=== PATIENT | female | born 1945 | race Caucasian/White ===

== ENCOUNTER → 2021-01-06 10:18 | Outpatient (CLI) | payer MEDICARE, OTHER, SELFPAY ==
--- NOTE | ~2021-01-06 | CT_ITS ---
EXAMINATION:CT diagnostic chest wo con DATE: 01/06/2021 10:52 INDICATION: Interstitial lung disease. TECHNIQUE: Computed tomography (CT) of the chest was performed without intravenous contrast. Automate d exposure control and iterative reconstruction technique were employed. The dose-length product (DLP ) was 177.94 mGy-cm. COMPARISON: None. FINDINGS: There is mild scarring at the lung apices. There is moderate emphysema. There is widespread septal thickening in the lungs with a peripheral and lower lung predominance associated with groundg lass opacities. There is mild bronchiectasis in the inferior lungs. There is a peripheral honeycombin g in the lungs bilaterally. No pleural effusion. The heart size is normal. There are coronary artery calcifications. No pericardial effusion. There is a small sliding hiatal hernia. Calcifications in th e spleen are consistent with old granulomatous disease. There is moderate thoracic spondylosis. IMPRESSION: 1. Diffuse lung disease, likely a combination of emphysema and chronic interstitial lung disease in a pattern of usual interstitial pneumonia (UIP). Reviewed, dictated and finalized at location A. IMPRESSION: 1. Diffuse lung disease, likely a combination of emphysema and chronic intersti tial lung disease in a pattern of usual interstitial pneumonia (UIP).
== END ==
PROVIDERS: PCP Nurse Practitioner Adult Health; Visit Provider Nurse Practitioner Adult Health
DX: J84.9 Interstitial pulmonary disease, unspecified (principal)
CPT/HCPCS: 71250

== ENCOUNTER 2022-03-02 13:26 | Emergency (ER) | payer MEDICARE, OTHER, SELFPAY ==
--- NOTE | ~2022-03-02 | XR_ITS ---
XR wrist RT min 3V 03/02/2022 13:49 Indication: Right radial wrist/thumb pain Procedure: 4 views right wrist Comparison: No prior studies for comparison. 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 No acute fracture or traumatic malalignment. There is mild soft tissue swelling adjacent to th e ulna distally. No foreign bodies. Impression: 1: No acute fracture. Reviewed, dictated and finalized at location A. [employer] Impression: 1: No acute fracture.
[2022-03-02 13:39] VITALS: BP 157/62; PULSE 63; RESP 18; TEMP 36.4; O2SAT 98
--- NOTE | 2022-03-02 14:07 | ED.GENADULT ---
HPI - General Adult General Chief complaint: Extremity Injury, Upper Stated complaint: RIGHT HAND PAIN FALL Time Seen by Provider: 03/02/22 14:08 Source: patient, RN notes reviewed and old records reviewed Mode of arrival: ambulatory Limitations: no limitations History of Present Illness HPI narrative: 76-year-old female presents to the [facility] with dorsal aspect right hand pain since tripping and falling with a FOOSH injury last night. States that she was carrying her dog when she tripped, dropped her dog and fell onto her hand. Has full range of motion. Sensation intact in all 5 fingers with capillary refill under 2 seconds. No snuffbox tenderness and capillary refill under 2 seconds Related Data Home Medications Medication Instructions Recorded Confirmed alprazolam 0.5 mg tablet mg 03/02/22 amlodipine 5 mg tablet mg 03/02/22 atorvastatin 20 mg tablet mg 03/02/22 cetirizine 10 mg tablet mg 03/02/22 clopidogrel 75 mg tablet mg 03/02/22 ergocalciferol (vitamin D2) 1,250 03/02/22 mcg (50,000 unit) capsule ezetimibe 10 mg tablet mg 03/02/22 glimepiride 2 mg tablet mg 03/02/22 lisinopril 20 mg tablet mg 03/02/22 loratadine 10 mg tablet mg 03/02/22 metoprolol tartrate 25 mg tablet mg 03/02/22 Allergies Allergy/AdvReac Type Severity Reaction Status Date / Time No Known Allergies Allergy Verified 03/02/22 13:55 Review of Systems Review of Systems: All systems reviewed & are unremarkable except as noted in HPI and below Constitutional: Constitutional: Reports no additional constitutional complaints Eyes: Eyes: Reports no additional eye complaints ENT: Reports system reviewed and no additional complaints, except as documented Cardiovascular: Cardiovascular: Reports no additional cardiovascular complaints, Denies chest pain and Denies dyspnea Respiratory: Respiratory: Reports no additional respiratory complaints, Denies chest congestion, Denies cough and Denies dyspnea Gastrointestinal: Gastrointestinal: Reports no additional gastrointestinal complaints, Denies abdominal pain, Denies nausea and Denies vomiting Musculoskeletal: Musculoskeletal: Reports as per HPI Integumentary/Breasts: Skin/Breast: Reports system reviewed and no additional complaints, except as docu Neurologic: Reports system reviewed and no additional complaints, except as documented Psychiatric: Psychiatric: Reports no additional psychiatric complaints Allergic/Immunologic: Allergic/Immunologic: Reports no additional allergic/immunologic complaints [facility] Past Medical History Medical History (Updated 03/02/22 @ 19:06 by Daya Javier APRN) Anxiety Cataract Diabetes High cholesterol Seasonal allergies Vitamin D deficiency Surgical History Surgical History (Updated 03/02/22 @ 19:06 by Daya Javier APRN) H/O heart artery stent 2012 H/O: hysterectomy History of colon resection Due to severe diverticulitis Social History Social History (Updated 03/02/22 @ 19:06 by Daya Javier APRN) Gender identity (if verbalized by the patient): Female Comments At the time of my signature, I reviewed and agree with the nursing past medical, surgical, social, and family history. There is no relevant family history pertinent to the patient complaint. Exam Const: General: cooperative, healthy appearing, comfortable, no acute distress, well developed, alert, average body habitus and well nourished Nutritional Appearance: average body habitus and well nourished Orientation/consciousness: patient oriented x3 Limitations: no limitations HENMT: Head: normal to inspection Ears: hearing grossly normal bilaterally and external ears normal Face/Nose/Sinus: Normal external nose present, Normal nares present, Normal nasal mucous membranes and turbinates present and normal facial exam Face and sinus: normal facial exam Mouth: Yes Normal oral and palatal mucosa present, Yes lip normal and Yes moist mucous membranes Eyes:
== END 2022-03-02 14:21 | disposition home or self-care (01) ==
PROVIDERS: Emergency Provider Nurse Practitioner
DX: S60.211A Contusion of right wrist, initial encounter (principal); W01.0XXA Fall on same level from slipping, tripping and stumbling without subsequent striking against object, initial encounter; M18.11 Unilateral primary osteoarthritis of first carpometacarpal joint, right hand; M19.031 Primary osteoarthritis, right wrist; E11.9 Type 2 diabetes mellitus without complications; E78.00 Pure hypercholesterolemia, unspecified; H26.9 Unspecified cataract; I25.10 Atherosclerotic heart disease of native coronary artery without angina pectoris; Z95.5 Presence of coronary angioplasty implant and graft
CPT/HCPCS: 73110; 99213; G0463

== ENCOUNTER 2023-05-31 10:42 | Outpatient (CLI) | payer MEDICARE, OTHER, SELFPAY ==
--- NOTE | ~2023-05-31 | US_ITS ---
EXAMINATION: US soft tissue LE DATE: 05/31/2023 11:12 INDICATION: Left lateral thigh lump. TECHNIQUE: Multiple grayscale and Doppler ultrasound images of the left lower limb were obtained. COMPARISON: None FINDINGS: There is an 11 mm hyperechoic subcutaneous mass in left lateral thigh in the patient's area of concern. There is internal vascularity on power Doppler. IMPRESSION: 1. 11 mm hyperechoic subcutaneous mass with internal vascularity in left lateral thigh, probably judson gn. Ultrasound-guided core biopsy is recommended. Reviewed, dictated and finalized at location E. 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 11 mm hyperechoic subcutaneous mass with internal vascularity in left latera l thigh, probably benign. Ultrasound-guided core biopsy is recommended.
== END 2023-05-31 10:43 ==
LOC: MICIMG 10:44
PROVIDERS: PCP Family Medicine; Visit Provider Family Medicine
DX: R22.42 Localized swelling, mass and lump, left lower limb (principal)
CPT/HCPCS: 76882

== ENCOUNTER 2023-06-28 09:46 | Outpatient (CLI) | payer MEDICARE, OTHER, SELFPAY ==
--- NOTE | ~2023-06-28 | US_ITS ---
EXAMINATION: US biopsy st muscle DATE: 06/28/2023 11:44 INDICATION: Left thigh mass. TECHNIQUE: The procedure including the risks, benefits, and alternatives was discussed with the patie nt. Risks discussed included bleeding and infection. The patient understood the risks and agreed to p roceed. The skin overlying the left thigh was prepped and draped in usual sterile fashion. Anestheti c was administered with 1% lidocaine subcutaneously. An 18 gauge core biopsy needle was then used to obtain 4 core biopsy specimens under continuous sonographic guidance. The entry site was cleaned and dressed. There were no immediate complications. FINDINGS: Ultrasound images demonstrate the needle in a 1.2 cm subcutaneous mass in left thigh. IMPRESSION: 1. Ultrasound-guided core needle biopsy of a 1.2 cm subcutaneous mass in left thigh. Reviewed, dictated and finalized at location A. IMPRESSION: 1. Ultrasound-guided core needle biopsy of a 1.2 cm subcutaneous mass in left t high.
== END 2023-06-28 09:47 | disposition home or self-care (01) ==
PROVIDERS: PCP Nurse Practitioner Family; Visit Provider Nurse Practitioner Family
DX: R22.9 Localized swelling, mass and lump, unspecified (principal)
CPT/HCPCS: 20206; 76942; 88305

== ENCOUNTER 2023-12-08 09:33 | Outpatient (CLI) | payer MEDICARE, OTHER, SELFPAY ==
--- NOTE | ~2023-12-08 | XR_ITS ---
EXAMINATION: XR chest 2V DATE: 12/08/2023 09:48 INDICATION: Pneumonia TECHNIQUE: frontal view of the chest was obtained. COMPARISON: Chest CT dated 01/06/2021 FINDINGS: Peripheral predominant chronic coarse reticular opacities in both lungs corresponding to a combinatio n of emphysema and chronic initial film disease on prior CT. No new airspace consolidation, pleural e ffusion or pneumothorax. Borderline cardiac silhouette exaggerated by left paracardial fat pad. IMPRESSION: 1. Emphysema with chronic interstitial lung disease. Reviewed, dictated and finalized at location A.
== END 2023-12-08 09:34 | disposition home or self-care (01) ==
PROVIDERS: PCP Nurse Practitioner Family; Visit Provider Nurse Practitioner Family
DX: J18.9 Pneumonia, unspecified organism (principal); J43.9 Emphysema, unspecified; J98.4 Other disorders of lung
CPT/HCPCS: 71046

== ENCOUNTER 2024-08-24 11:20 | Emergency (ER) | payer MEDICARE, OTHER, SELFPAY ==
--- NOTE | 2024-08-24 11:23 | ED_ITS ---
HPI - Back Pain/Injury General Chief Complaint: Back Pain/Injury Stated Complaint: back pain Source: patient, RN notes reviewed and old records reviewed Mode of arrival: ambulatory Limitations: no limitations History of Present Illness HPI Narrative: 79-year-old female presents to the [facility] with left lower back pain. Patient states that on Sunday, 4 days ago she was cleaning her car, Sunday night developed low back discomfort. Denies any loss retention of bowel or bladder. No midline tenderness. Walks with a normal gait. Patient denies any urinary symptoms. No chest pain or shortness of breath. Denies abdominal pain Has taken Tylenol Related Data Home Medications ?Medication ?Instructions ?Recorded ?Confirmed ?Last Taken ?Type alprazolam 0.5 mg tablet mg 03/02/22 Unknown History amlodipine 5 mg tablet mg 03/02/22 Unknown History atorvastatin 20 mg tablet mg 03/02/22 Unknown History cetirizine 10 mg tablet mg 03/02/22 Unknown History clopidogrel 75 mg tablet mg 03/02/22 Unknown History ergocalciferol (vitamin D2) 1,250 03/02/22 Unknown History mcg (50,000 unit) capsule ezetimibe 10 mg tablet mg 03/02/22 Unknown History glimepiride 2 mg tablet mg 03/02/22 Unknown History lisinopril 20 mg tablet mg 03/02/22 Unknown History loratadine 10 mg tablet mg 03/02/22 Unknown History metoprolol tartrate 25 mg tablet mg 03/02/22 Unknown History Allergies Allergy/AdvReac Type Severity Reaction Status Date / Time codeine Allergy Unknown Unknown Verified 08/24/24 11:36 Review of Systems 2 Review of Systems: All systems reviewed & are unremarkable except as noted in HPI and below Constitutional: Constitutional: Reports no additional constitutional complaints ENT: Reports system reviewed and no additional complaints, except as documented Cardiovascular: Cardiovascular: Reports no additional cardiovascular complaints, Denies chest pain and Denies dyspnea Respiratory: Respiratory: Reports no additional respiratory complaints, Denies chest congestion, Denies cough and Denies dyspnea Musculoskeletal: Musculoskeletal: Reports as per HPI and Reports back pain Integumentary/Breasts: Skin/Breast: Reports system reviewed and no additional complaints, except as docu [facility] Past Medical History Medical History Cataract Seasonal allergies Diabetes Vitamin D deficiency Anxiety High cholesterol Surgical History Surgical History History of colon resection Due to severe diverticulitis H/O: hysterectomy H/O heart artery stent 2012 Social History Social History Gender identity (if verbalized by the patient): Female Comments At the time of my signature, I reviewed and agree with the nursing past medical, surgical, social, and family history. There is no relevant family history pertinent to the patient complaint. Exam 2 Const: General: cooperative, healthy appearing, comfortable, no acute distress, well developed, alert and well nourished Nutritional Appearance: w ell nourished Orientation/consciousness: patient oriented x3 Limitations: no limitations HENMT: Head: normal to inspection Eyes: General: appearance normal, both eyes and all related structures A lignment and Position: alignment normal Neck: Neck: normal visual inspection, full ROM, no lymphadenopathy and no meningeal signs Chest: Chest palpation & inspection: normal inspection of the chest Resp: Effort & Inspection: normal respiratory effort and able to speak in complete sentences Auscultation: clear to auscultation bilaterally, no crackles, no rales, no rhonchi and no wheezes Cardio: Rate: regular rate GI: GI Palp: No abdominal tenderness Back/Spine/Pelvis: Back: No ecchymosis and back tenderness (Left lower) C ervical Spine: normal cervical lordosis, cervical ROM normal, No cervical muscular tenderness and No Cervical spine tenderness Thoracic/Lumbar Spine: p araspinal muscle tenderness on the left in the mid lumbar and in the lower lumbar, thoraco-lumbar spasm on the left in the mid lumbar and in the lower lumbar, No thoracic spinal tenderness and No lumbar spinal tenderness Pelvis: no pain with anterior-posterior compression and no pain with lateral compression Back/spine/pelvis image: 1. Tenderness, spasm noted. Patient reports pain travels up words. No erythema, ecchymosis, rash noted. No midline tenderness. No loss or retention bowel bladder. No saddle anesthesia Skin: General skin exam: normal color and no rashes or lesions noted Neuro: General: patient oriented x3, gait normal, moves all extremities and no meningeal signs Cognition (Neuro): normal cognition Speech: normal speech Gait exam (Neuro): Normal gait present Extrem: General: normal to inspection, full ROM, capillary refill normal and normal gait Psych: Appearance: grossly normal and well kempt Mental Status: mental status grossly normal Speech and movement: Normal speech and movement present and Clear speech present Affect: normal affect Attitude: cooperative Course Course Level of Care: Express Care Visit Vital Signs Vital signs: Vital Signs Temperature 97.5 F L 08/24/24 11:37 Pulse Rate 53 L 08/24/24 11:37 Respiratory Rate 18 08/24/24 11:37 Blood Pressure 152/61 H 08/24/24 11:37 Pulse Oximetry 96 08/24/24 11:37 Oxygen Delivery Room Air 08/24/24 11:37 Temperature 97.5 F L 08/24/24 11:37 Pulse Rate 53 L 08/24/24 11:37 Respiratory Rate 18 08/24/24 11:37 Blood Pressure 152/61 H 08/24/24 11:37 Pulse Oximetry 96 08/24/24 11:37 Oxygen Delivery Room Air 08/24/24 11:37 Reviewed MDM - Back Pain/Injury MDM Narrative Medical decision making narrative: Patient sitting in exam room. Patient is nontoxic, vitals are stable except blood pressure mildly elevated. Patient presents with back pain. No red flag symptoms. No loss retention bowel bladder. No midline tenderness. No abdominal pain, no saddle anesthesia. Patient appropriate for outpatient treatment with Lidoderm patches, muscle relaxer and Tylenol. Discussed the importance of following up with primary care provider this week especially if symptoms persist for further evaluation, testing and treatment Discharge instructions reviewed with patient, as well as provided in writing per nursing staff. The instructions also include specific and strict return/GO TO THE ER as well as f/u information. All questions have been answered, and the patient deny any further questions with discharge and discharge plan. Some parts of this dictation were generated by voice recognition software and may contain typographical and/or grammatical inaccuracies. Differential Diagnosis Differential diagnosis: Likely lumbar radiculopathy, sciatica, strain of lumbar region and pyelonephritis Critical Care Time Critical Care Time Critical Care Time: No Discharge Plan Discharge Clinical Impression: Strain of lumbar region Patient Disposition: Home Condition: Stable Instructions: Antibiotic Form, Low Back Strain (ED), Acute Low Back Pain (ED), Lower Back Exercises (ED) Additional Instructions: Take Tylenol to help with pain Take Baclofen (muscle relaxer) as directed. Do not drink, drive, operate machinery, or do anything dangerous while taking this medication Applied a Lidoderm patch to the painful area Exercise:Combine aerobic exercise, like walking or swimming, with specific exercises to keep the muscles in your back and abdomen strong and flexible. Proper Lifting:Be sure to lift heavy items with your legs, not your back. Do not bend over to pick something up. Keep your back straight and bend at your knees. Weight:Maintain a healthy weight. Being overweight puts added stress on your lower back. Avoid Smoking:Both the smoke and the nicotine cause your spine to age faster than normal. Proper Posture:Good posture is important for avoiding future problems. A therapist can teach you how to safely stand, sit, and lift. Use warm moist heat to help with pain. Using topical such as Biofreeze, Alan-Geiger or Aspercreme can also help Follow up with Primary provider in 2-3 days, This may become a chronic condition and they will be the one to help manage your pain and order additional testing. Go to the nearest ER if you develop problems with bladder/bowel function, weakness or loss of feeling in one or both of your legs. Patient Language: German Prescriptions: No Action atorvastatin 20 mg tablet cetirizine 10 mg tablet lisinopril 20 mg tablet clopidogrel 75 mg tablet amlodipine 5 mg tablet glimepiride 2 mg tablet alprazolam 0.5 mg tablet ergocalciferol (vitamin D2) 1,250 mcg (50,000 unit) capsule loratadine 10 mg tablet ezetimibe 10 mg tablet metoprolol tartrate 25 mg tablet Follow-up/Referrals: Corwin,Suzanne Eduardo [employer]NAGER [employer] [Primary Care Provider] - 1 Week (express care follow up ) Stand Alone Forms: Work/School Release IP Time of Disposition: 11:47
[2024-08-24 11:37] VITALS: BP 152/61; PULSE 53; RESP 18; TEMP 36.4; O2SAT 96
== END 2024-08-24 12:01 | disposition home or self-care (01) ==
PROVIDERS: Emergency Provider Nurse Practitioner; PCP Nurse Practitioner Family
DX: S39.012A Strain of muscle, fascia and tendon of lower back, initial encounter (principal); X58.XXXA Exposure to other specified factors, initial encounter; E11.9 Type 2 diabetes mellitus without complications; E78.00 Pure hypercholesterolemia, unspecified
CPT/HCPCS: 99212; G0463

== ENCOUNTER 2024-08-27 15:35 | Outpatient (CLI) | payer MEDICARE, OTHER, SELFPAY ==
--- NOTE | ~2024-08-27 | CT_ITS ---
EXAMINATION: CT abdomen pelvis wo/w con DATE: 08/27/2024 15:59 INDICATION: Abdominal pain TECHNIQUE: Computed tomography (CT) of the abdomen and pelvis was performed without and with 100 cc O mnipaque 350 intravenous contrast. The dose-length product was 652.84 mGy-cm. Automated exposure cont rol and iterative reconstruction technique were employed. COMPARISON: None. FINDINGS: There is chronic interstitial fibrosis of the lung bases. There is bullous emphysema. No si gnificant pleural or pericardial effusion. Heart size normal. Calcified granulomas are present in the spleen. The liver, adrenal glands and right kidney are unrema rkable. There is a small there 9 mm liver cyst adjacent to the gallbladder. 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 Gallbladder is present. Nonobstructive bowel pattern. No free air or free fluid. T here is moderate diffuse atherosclerosis without aneurysm. Colonic diverticulosis without evidence fo r diverticulitis. Small ventral hernia containing fat. There is scoliosis. Moderate lower thoracic an d lumbar spondylosis. IMPRESSION: 1. No acute abdominal abnormality. Reviewed, dictated and finalized at location A.
[2024-08-27 15:51] LABS: Estimated Glomerular Filt Rate > 60
== END 2024-08-27 15:36 | disposition home or self-care (01) ==
LOC: MICIMG 15:36
PROVIDERS: PCP Nurse Practitioner Family; Visit Provider Nurse Practitioner Family
DX: R10.9 Unspecified abdominal pain (principal)
CPT/HCPCS: 74178; Q9967